=== PATIENT | male | born 1975 | race Caucasian/White ===

== ENCOUNTER 2021-06-12 09:00 | Outpatient (REF) | payer OTHER, SELFPAY ==
[2021-06-12 11:23] LABS: MANUAL DIFF FLAG NO
[2021-06-12 11:32] LABS: Basophils Absolute Auto 0.1 X10*3/uL (0.0-0.2); Basophils Percent Auto 0.9 % (0-2); Eosinophils Absolute Auto 0.2 X10*3/uL (0.0-0.4); Eosinophils Percent Auto 3.8 % (0-4); Hematocrit 45.7 % (42.0-52.0); Hemoglobin 15.5 g/dl (14.0-18.0); Imm Gran Abs Auto 0.01 X10*3/uL (0.00-0.03); Imm Gran Pct Auto 0.2 % (0.0-0.4); Lymphocytes Absolute Auto 1.4 X10*3/uL (1.2-4.9); Lymphocytes Percent Auto 25.8 % (20-40); Mean Corpuscular HGB Conc 33.9 g/dl (31.0-36.0); Mean Corpuscular Hemoglobin 29.1 pg (27.0-33.0); Mean Corpuscular Volume 85.7 fL (80.0-98.0); Mean Platelet Volume 10.1 fL (9.4-12.4); Monocytes Absolute Auto 0.4 X10*3/uL (0.1-1.2); Monocytes Percent Auto 8.1 % (2-11); Neutrophils Absolute Auto 3.2 x10*3/uL (2.0-8.3); Neutrophils Percent Auto 61.2 % (45-73); Platelet Count 173 X10*3/uL (160-400); Red Blood Count 5.33 X10*6/uL (4.60-5.80); Red Cell Distribution Width 13.2 % (11.0-16.0); White Blood Count 5.3 X10*3/uL (4.8-10.8)
[2021-06-12 12:04] LABS: Alanine Aminotransferase 28 U/L (0-40); Albumin Level 4.8 g/dL (3.5-5.0); Alkaline Phosphatase 60 U/L (39-117); Anion Gap 12 (12-20); Aspartate Amino Transferase 25 U/L (5-37); Bilirubin Total 1.1 mg/dL (0.0-1.0); Blood Urea Nitrogen 17 mg/dL (9-16); Calcium 9.5 mg/dL (8.4-10.2); Carbon Dioxide 30 mmol/L (22-29); Chloride 102 mmol/L (96-108); Cholesterol 157 mg/dL; Estimated Glomerular Filt Rate > 60; Glucose Random 89 mg/dL (60-115); HDL Cholesterol 39 mg/dL; LDL Cholesterol Calculated 103 mg/dl; Potassium 4.6 mmol/L (3.3-5.1); Sodium 139 mmol/L (135-145); Total Protein 7.4 g/dL (6.5-8.0); Triglycerides 77 mg/dL
[2021-06-12 12:06] LABS: Free T4 (Free Thyroxine) 0.94 ng/dL (0.71-1.85); Thyroid Stimulating Hormone 1.13 uIU/mL (0.32-4.0)
[2021-06-12 12:16] LABS: Folate 6.9 ng/mL (> or = 4.0); Vitamin B12 211 pg/mL (200-900)
[2021-06-12 12:18] LABS: ~Hepatitis C Antibody Nonreactive (Nonreactive)
[2021-06-12 12:29] LABS: Erythrocyte Sedimentation Rate 1 MM/HR (0-15)
[2021-06-12 12:31] LABS: HBS Num1 0.16 mIU/mL (0-7.99); HBc Num1 0.12 S/CO (0.00-0.79); Hepatitis B Core Antibody Nonreactive (Nonreactive); Hepatitis B Surface Antigen Negative (Negative); ~Hepatitis B Surface Antibody NONREACTIVE (Nonreactive)
== END 2021-06-12 09:01 | disposition home or self-care (01) ==
LOC: HO.HMGCLDS 09:00
PROVIDERS: PCP Internal Medicine; Visit Provider Internal Medicine
DX: E78.00 Pure hypercholesterolemia, unspecified (principal); L40.9 Psoriasis, unspecified; F32.9 Major depressive disorder, single episode, unspecified; F41.9 Anxiety disorder, unspecified; R79.89 Other specified abnormal findings of blood chemistry
CPT/HCPCS: 36415; 80053; 80061; 82607; 82746; 84439; 84443; 85025; 85652; 86704; 86706; 86803; 87340

== ENCOUNTER 2022-05-21 06:57 | Outpatient (REF) | payer BC, SELFPAY ==
[2022-05-21 11:39] LABS: MANUAL DIFF FLAG NO
[2022-05-21 11:51] LABS: Basophils Absolute Auto 0.1 X10*3/uL (0.0-0.2); Basophils Percent Auto 1.3 % (0-2); Eosinophils Absolute Auto 0.2 X10*3/uL (0.0-0.4); Eosinophils Percent Auto 3.7 % (0-4); Hematocrit 45.4 % (42.0-52.0); Hemoglobin 15.2 g/dl (14.0-18.0); Imm Gran Abs Auto 0.01 X10*3/uL (0.00-0.03); Imm Gran Pct Auto 0.2 % (0.0-0.4); Lymphocytes Absolute Auto 1.4 X10*3/uL (1.2-4.9); Lymphocytes Percent Auto 25.1 % (20-40); Mean Corpuscular HGB Conc 33.5 g/dl (31.0-36.0); Mean Corpuscular Volume 86.5 fL (80.0-98.0); Mean Platelet Volume 10.1 fL (9.4-12.4); Monocytes Absolute Auto 0.4 X10*3/uL (0.1-1.2); Monocytes Percent Auto 7.5 % (2-11); Neutrophils Absolute Auto 3.4 x10*3/uL (2.0-8.3); Neutrophils Percent Auto 62.2 % (45-73); Platelet Count 148 X10*3/uL (160-400); Red Blood Count 5.25 X10*6/uL (4.60-5.80); Red Cell Distribution Width 13.1 % (11.0-16.0); White Blood Count 5.5 X10*3/uL (4.8-10.8)
[2022-05-21 12:28] LABS: Alanine Aminotransferase 32 U/L (0-40); Albumin Level 4.6 g/dL (3.5-5.0); Alkaline Phosphatase 69 U/L (39-117); Anion Gap 9 (12-20); Aspartate Amino Transferase 24 U/L (5-37); Bilirubin Total 1.2 mg/dL (0.0-1.0); Blood Urea Nitrogen 14 mg/dL (9-16); Calcium 9.2 mg/dL (8.4-10.2); Carbon Dioxide 30 mmol/L (22-29); Chloride 105 mmol/L (96-108); Cholesterol 157 mg/dL; Estimated Glomerular Filt Rate > 60; Glucose Random 83 mg/dL (60-115); HDL Cholesterol 34 mg/dL; LDL Cholesterol Calculated 108 mg/dl; Potassium 4.3 mmol/L (3.3-5.1); Sodium 140 mmol/L (135-145); Total Protein 6.8 g/dL (6.5-8.0); Triglycerides 77 mg/dL
[2022-05-21 12:40] LABS: Free T4 (Free Thyroxine) 0.99 ng/dL (0.71-1.85); Thyroid Stimulating Hormone 1.61 uIU/mL (0.32-4.0); Vitamin B12 270 pg/mL (200-900)
[2022-05-26 14:13] LABS: Intrinsic Factor Antibodies Negative (Negative)
[2022-05-27 23:14] LABS: Parietal Cell Antibody <=20.0 Unit (<=20.0)
== END 2022-05-21 06:58 | disposition home or self-care (01) ==
LOC: HO.HMGCLDS 06:57
PROVIDERS: PCP Internal Medicine; Visit Provider Internal Medicine
DX: E78.00 Pure hypercholesterolemia, unspecified (principal); F41.1 Generalized anxiety disorder
CPT/HCPCS: 36415; 80053; 80061; 82607; 82746; 83516; 84439; 84443; 85025; 86340; 86900; 86901

== ENCOUNTER 2022-11-20 08:04 | Outpatient (AMB) | payer OTHER, SELFPAY ==
--- NOTE | 2022-11-20 08:31 | MHC.PC.OV ---
Vital Signs 11/20/22 08:33 Height 5 ft 10 in Weight 163 lb BMI 23.4 BP 128/78 Blood Pressure Location Lt brachial Position Sitting Pulse 59 Pulse Source Pulse Oximeter Pulse Oximetry (%) 96 Oxygen Delivery Method Room Air Intake Visit Reasons: ARCADIO Allergies No Known Allergies Allergy (Verified 05/20/22 09:04) Tobacco use date assessed: 05/20/22 Dental Screening Dental Screen Date: 11/20/22 Did you have a dental visit in the last 12 months?: Yes Did you have a dental problem in the last 6 months where you did not have access to dental care?: No Was dental information given to patient?: Patient has dentist HPI ARCADIO HPI Details 47-year-old male coming in today for follow-up. Last seen in April 2022 with generalized anxiety disorder patient is on Lexapro 10 mg once a day. Patient is going to be running on half marathon with daughter. Having problems with partner and asking for sexually transmitted disease testing. Patient has seen Optometry and was told there were spots in the eye few months ago and was told that the spots are 2 now and was reassured but was asking for ophthalmology referral. Patient has a history of psoriasis and was supposed to see the Rheumatology and has been waiting and at the last moment canceled and was asking for referral to a different dermatology. [facility] Medical History (Updated 11/20/22 @ 08:54 by Delaney Jacques MD) Colon cancer screening Vitamin D deficiency Psoriasis Surgical History (Updated 12/28/19 @ 10:35 by Delaney Jacques MD) History of vasectomy Hx of tonsillectomy Family History (Updated 11/20/22 @ 08:38 by Re Vicente [facility]) Maternal Aunt Breast cancer in situ Paternal Aunt Breast cancer in situ Father Prostate cancer Substance abuse Paternal Grandfather Prostate cancer Mother Substance abuse Sister Substance abuse Brother Substance abuse Social History (Updated 05/20/22 @ 09:27 by Delaney Jacques MD) Housing: Apartment Alcohol intake: current Patient Tobacco Use Status: Never used Tobacco e-Cigarette/Vaping Use: Never Used Second Hand Smoke Exposure: No service: No Current occupational status: employed Cognitive needs: No Hearing needs: No Vision needs: No Questionnaire PHQ-9 Over the last 2 weeks, how often have you been bothered by any of the following problems? 1. Little interest or pleasure in doing things: more than half the days 2. Feeling down, depressed, or hopeless: more than half the days 3. Trouble falling or staying asleep, or sleeping too much: not at all 4. Feeling tired or having little energy: not at all 5. Poor appetite or overeating: not at all 6. Feeling bad about yourself - or that you are a failure or have let yourself or your family down: not at all 7. Trouble concentrating on things, such as reading the newspaper or watching television: not at all 8. Moving or speaking so slowly that other people could have noticed. Or the opposite - being so fidgety or restless that you have been moving around a lot more than usual: not at all 9. Thoughts that you would be better off or of hurting yourself in some way: not at all Total score: 4 Depression Screening Interpretation: Negative Source: Developed by Drs. Dakota Saunders, Kori Elliott, Rishi Toledo and colleagues, with an educational melissa from [employer]. Thrive Questionnaire Date Thrive assessed: 05/20/22 ARCADIO-7 AMB Questionnaire ARCADIO-7 Date ARCADIO - 7 assessed: 05/20/22 Source: Developed by Drs. Dakota Saunders, Kori Elliott, Rishi Toledo and colleagues, with an educational melissa from [employer]. Physical exam (Primary Care) Vital Signs: Last Vital Signs Pulse 59 11/20/22 08:33 BP 128/78 11/20/22 08:33 Pulse Ox 96 11/20/22 08:33 Oxygen Delivery Method Room Air 11/20/22 08:33 BMI result Body Mass Index 23.4 Tobacco/Smoking Status: Tobacco use Status Tobacco use date assessed 05/20/22 11/20/22 08:34 Patient Tobacco Use Status Never used Tobacco 11/20/22 08:34 e-Cigarette/Vaping Use Never Used 11/20/22 08:34 PHQ-9: PHQ-9 Score PHQ-9: Total score 4 11/20/22 08:39 Depression Screening Interpretation: Negative Thrive Assessment: Date of Thrive Assessment Date Thrive assessed 05/20/22 11/20/22 08:34 Const General: alert; No acute distress Eyes Conjunctivae: conjunctivae normal Resp Auscultation: clear to auscultation bilaterally Cardio Rate: regular rate Rhythm: regular rhythm GI Inspection: Yes normal to inspection Extrem General: Yes normal to inspection and No edema Assessment and Plan Assessment & Plan (1) Generalized anxiety disorder: Comment: Decline any referral for counseling April 2021 Code(s): F41.1 - Generalized anxiety disorder Plan: Continue with present management (2) Vitamin B12 deficiency: Code(s): E53.8 - Deficiency of other specified B group vitamins Plan: B12 deficiency 1000 mcg once a day and add folic acid (3) Vision problem: Comment: Vohname Code(s): H54.7 - Unspecified visual loss Plan: Referral to Ophthalmology (4) Sexually transmitted disease exposure: Code(s): Z20.2 - Contact with and (suspected) exposure to infections with a predominantly sexual mode of transmission Plan: Testing done (5) Psoriasis: Code(s): L40.9 - Psoriasis, unspecified Plan: referral to Dermatology Orders: Orders HIV Ab/Ag Today Z20.2 - Contact with and (suspected) exposure to infections with a predominantly sexual mode of transmission CT NG by PCR Today Z20.2 - Contact with and (suspected) exposure to infections with a predominantly sexual mode of transmission Syphilis Screen Today Z20.2 - Contact with and (suspected) exposure to infections with a predominantly sexual mode of transmission Hepatitis B,C Profile Today R79.89 - Other specified abnormal findings of blood chemistry, Z20.2 - Contact with and (suspected) exposure to infections with a predominantly sexual mode of transmission Referrals Ophthalmology Referral H54.7 - Unspecified visual loss Dermatology Referral L40.9 - Psoriasis, unspecified Coding Level of Care Code Est Pt Level 4 (40685) Diagnoses Generalized anxiety disorder F41.1 Vitamin B12 deficiency E53.8 Vision problem H54.7 Sexually transmitted disease exposure Z20.2 Psoriasis L40.9
[2022-11-20 08:33] VITALS: BP 128/78; PULSE 59; O2SAT 96; BMI 23.4
== END 2022-11-20 09:03 | disposition home or self-care (01) ==
PROVIDERS: Visit Provider Internal Medicine
DX: F41.1 Generalized anxiety disorder (principal); E53.8 Deficiency of other specified B group vitamins; H54.7 Unspecified visual loss; Z20.2 Contact with and (suspected) exposure to infections with a predominantly sexual mode of transmission; L40.9 Psoriasis, unspecified
CPT/HCPCS: 99214

== ENCOUNTER 2022-11-25 07:43 | Outpatient (REF) | payer OTHER, SELFPAY ==
[2022-11-25 12:56] LABS: Syphilis Screen Nonreactive (Nonreactive)
[2022-11-25 12:58] LABS: HBS Num1 0.27 mIU/mL (0-7.99); HBc Num1 0.09 S/CO (0.00-0.79); HIV AB/AG Nonreactive (Nonreactive); HIV Num 1 0.06 S/CO (0.00-0.99); Hepatitis B Core Antibody Nonreactive (Nonreactive); Hepatitis B Surface Antigen Negative (Negative); ~HepC Num1 0.09 S/CO (0.00-0.79); ~Hepatitis B Surface Antibody NONREACTIVE (Nonreactive); ~Hepatitis C Antibody Nonreactive (Nonreactive)
== END 2022-11-25 07:44 | disposition home or self-care (01) ==
LOC: HO.HMGCLDS 07:43
PROVIDERS: PCP Internal Medicine; Visit Provider Internal Medicine
DX: Z11.4 Encounter for screening for human immunodeficiency virus [HIV] (principal); Z20.2 Contact with and (suspected) exposure to infections with a predominantly sexual mode of transmission; R79.89 Other specified abnormal findings of blood chemistry
CPT/HCPCS: 36415; 86704; 86706; 86780; 86803; 87340; 87389

== ENCOUNTER 2024-11-22 11:06 | Outpatient (AMB) | payer OTHER, SELFPAY ==
[2024-11-22 11:14] VITALS: BP 132/88; PULSE 75; TEMP 36.2; O2SAT 98; BMI 24.4
--- NOTE | 2024-11-22 11:14 | A.OFFPC_ITS ---
Vital Signs 11/22/24 11:14 Height 5 ft 10 in Weight 170 lb 6 oz BMI 24.4 BP 132/88 Blood Pressure Location Lt brachial Position Sitting Pulse 75 Pulse Source Pulse Oximeter Temp 97.1 F Temp Source Temporal Artery Scan Pulse Oximetry (%) 98 Oxygen Delivery Method Room Air Intake Visit Reasons: CPE Allergies No Known Allergies Allergy (Verified 11/22/24 11:18) Medication List - Last Reconciled 11/22/24 by Delaney Jacques MD No Known Home Meds Tobacco use date assessed: 11/22/24 Dental Screening Dental Screen Date: 11/22/24 Did you have a dental visit in the last 12 months?: No Did you have a dental problem in the last 6 months where you did not have access to dental care?: No Was dental information given to patient?: Patient has dentist HPI CPE HPI Details alergic reaction with facial [facility]eling urgent [facility] - dog has a new tick collar with essential oils- went again to urgent care[facility] and was rx steroid PFS Medical History Colon cancer screening Vitamin D deficiency Psoriasis Surgical History History of vasectomy Hx of tonsillectomy Family History Maternal Aunt Breast cancer in situ Paternal Aunt Breast cancer in situ Father Prostate cancer Substance abuse Paternal Grandfather Prostate cancer Mother Substance abuse Sister Substance abuse Brother Substance abuse Social History (Updated 11/22/24 @ 11:50 by Delaney Jacques MD) Housing: Apartment Alcohol intake: current Comment: twice a week 2 drinks a week Patient Tobacco Use Status: Never used Tobacco e-Cigarette/Vaping Use: Never Used Second Hand Smoke Exposure: No service: No Current occupational status: employed Cognitive needs: No Hearing needs: No Vision needs: No Questionnaire PHQ-9 Over the last 2 weeks, how often have you been bothered by any of the following problems? 1. Little interest or pleasure in doing things: not at all 2. Feeling down, depressed, or hopeless: not at all 3. Trouble falling or staying asleep, or sleeping too much: not at all 4. Feeling tired or having little energy: not at all 5. Poor appetite or overeating: not at all 6. Feeling bad about yourself - or that you are a failure or have let yourself or your family down: not at all 7. Trouble concentrating on things, such as reading the newspaper or watching television: not at all 8. Moving or speaking so slowly that other people could have noticed. Or the opposite - being so fidgety or restless that you have been moving around a lot more than usual: not at all 9. Thoughts that you would be better off or of hurting yourself in some way: not at all Total score: 0 Source: Developed by Drs. Dakota Saunders, Kori Elliott, Rishi Toledo and colleagues, with an educational melissa from [employer]. Thrive Questionnaire Date Thrive assessed: 11/15/24 I am a: Patient What is your living situation today?: I have a steady place to live Within the past 12 months, did the food you bought not last and you didn't have the money to get more?: Never true Within the past 12 months, did you worry whether your food would run out before you got money to buy more?: Never true Do you have trouble paying for medicines?: No Do you have trouble getting transportation to medical appointments?: No Do you have trouble paying your heating and electricity bill?: No Do you have trouble taking care of your child, family member or friend?: No Do you have trouble with day-to-day activities such as bathing, preparing meals, shopping, managing finances, etc.?: No Are you currently unemployed and looking for a job?: No Are you interested in more education?: No Please select the resources that you would like help with: None Currently or been in a relationship where the following occur: I choose not to answer THRIVE Score: 0 AUDIT C Alcohol Use Questionnaire (AUDIT-C) 1. How often do you have a drink containing alcohol?: 2-4 times a month 2. How many drinks containing alcohol do you have on a typical day when you are drinking?: 3 or 4 3. How often do you have six or more drinks on one occasion?: Never Total Score: 3 ARCADIO-7 AMB Questionnaire ARCADIO-7 Date ARCADIO - 7 assessed: 11/22/24 Feeling nervous, anxious, or on edge: 1 = Several days Not being able to stop or control worryin = Several days Worrying too much about different things: 1 = Several days Trouble relaxin = Not at all Being so restless that it is hard to sit still: 0 = Not at all Becoming easily annoyed or irritable: 0 = Not at all Feeling afraid as if something awful might happen: 0 = Not at all Total ARCADIO-7 score (0-4 normal; 5-9 mild; 10-14 moderate; 15-21 severe): 3 Source: Developed by Drs. Dakota Saunders, Kori Elliott, Rishi Toledo and colleagues, with an educational melissa from [employer]. Review of Systems Const Denies poor appetite and Denies weakness Eyes Denies no additional complaints ENT Reports Normal hearing present, Denies dizziness, Denies nasal congestion, Denies tinnitus and Denies sore throat Card Denies chest pain, Denies syncope, Denies rapid heart rate and Denies dyspnea Resp Denies cough and Denies dyspnea GI Denies change in stool character, Reports constipation, Denies diarrhea, Denies nausea and Denies vomiting Denies dysuria and Denies urinary frequency Neuro Reports Normal hearing present, Denies confusion, Denies dizziness, Denies syncope and Denies weakness Psych Denies confusion Physical exam (Primary Care) Vital Signs: Last Vital Signs Temp 97.1 F 11/22/24 11:14 Pulse 75 11/22/24 11:14 BP 132/88 11/22/24 11:14 Pulse Ox 98 11/22/24 11:14 Oxygen Delivery Method Room Air 11/22/24 11:14 BMI result Body Mass Index 24.4 Tobacco/Smoking Status: Tobacco use Status Tobacco use date assessed 11/22/24 11/22/24 11:19 Patient Tobacco Use Status Never used Tobacco 11/22/24 11:19 e-Cigarette/Vaping Use Never Used 11/22/24 11:19 PHQ-9: PHQ-9 Score PHQ-9: Total score 0 11/22/24 11:19 Thrive Assessment: Date of Thrive Assessment Date Thrive assessed 11/15/24 11/22/24 11:19 Currently or been in a relationship where the following occur: I choose not to answer Const General: No confusion Orientation/consciousness: No confusion HENMT Head: Yes normocephalic Ears: external ears normal and TM's normal bilaterally Face and sinus: Yes normal facial exam Mouth: moist mucous membranes Throat: Yes tonsils normal Eyes Conjunctivae: conjunctivae normal Pupils: Equal, round and reactive pupils present and Pupil accommodation reflex normal Direct Ophthalmoscopy: normal light reflex Neck Neck: No lymphadenopathy Thyroid: Thyroid normal Chest Chest palpation & inspection: normal inspection of the chest Resp Effort & Inspection: normal respiratory effort and no audible wheezes Auscultation: clear to auscultation bilaterally, no crackles, no wheezes and lung sounds not diminished Cardio Rate: regular rate Rhythm: regular rhythm Peripheral pulses: radial pulses present and dorsalis pedis present GI Other: visual rectal exam negative Palpation (GI): no masses Auscultation: normal bowel sounds and normoactive bowel sounds Rectal Exam - Male: Yes deferred Male General Exam: Yes normal external exam Skin General skin exam: no rashes or lesions noted Rashes: no rashes Neuro General: No confusion Cranial nerves: Yes Equal, round and reactive pupils present and Yes Normal hearing present Cognition (Neuro): normal cognition Gait exam (Neuro): Normal gait present Motor exam (neuro): 5/5 motor strength present throughout Deep tendon reflexes (DTR's): Right brachioradialis reflex intensity grade: 2+, Left brachioradialis reflex intensity grade: 2+, Right patellar reflex intensity grade: 2+ and Left patellar reflex intensity grade: 2+ Extrem General: No edema Coding Level of Care Code Est Pt Prev Care 40-64y(50426) Diagnoses Annual physical exam Z00. Vitamin B12 deficiency E53.8 Generalized anxiety disorder F41.1 Psoriasis L40.9 Allergic reaction T78.40XA Left hamstring muscle strain S76.312A Assessment & Plan Assessment & Plan (1) Annual physical exam: Code(s): Z00.00 - Encounter for general adult medical examination without abnormal findings Category: Medical Plan: Patient is advised to eat healthy, keep well hydrated, keep active and have adequate sleep. (2) Vitamin B12 deficiency: Code(s): E53.8 - Deficiency of other specified B group vitamins Category: Medical Plan: Discussed about repeating the blood work to check for vitamin B12 (3) Generalized anxiety disorder: Comment: Decline any referral for counseling April 2021 Code(s): F41.1 - Generalized anxiety disorder Category: Medical Plan: Stable (4) Psoriasis: Code(s): L40.9 - Psoriasis, unspecified Category: Medical Plan: Follow-up with dermatology (5) Allergic reaction: Code(s): T78.40XA - Allergy, unspecified, initial encounter Category: Medical (6) Left hamstring muscle strain: Code(s): S76.312A - Strain of muscle, fascia and tendon of the posterior muscle group at thigh level, left thigh, initial encounter Category: Medical Plan History of Present Illness The patient is a 49-year-old male presenting for a physical examination and wellness visit. The patient has a history of psoriasis and generalized anxiety disorder. He noted a 7-pound weight gain since his last visit. In May 2022, the patient underwent a Cologuard test, which returned negative, and he remains up to date with this screening. The patient's last blood work in 2022 showed normal blood count with mild thrombocytopenia, normal electrolytes, renal function at 1.04, normal blood sugar, liver function, and cholesterol. However, there was a mild vitamin B12 deficiency noted, while folic acid and thyroid function were normal. Health Maintenance - Colon cancer screening with stool test (Cologuard) in May 2022, negative result - Discussion about repeating blood work to check vitamin B12 levels Social History Review of Systems Physical Exam General: Cooperative, healthy appearing, comfortable, no acute distress and well developed Orientation: Patient oriented x3 Limitations: No limitations Head: Normal to inspection Ears: Hearing grossly normal bilaterally Nose: Normal external nose present Face and sinus: Normal facial exam Eyes: Appearance normal, both eyes and all related structures Neck: Normal visual inspection and Yes full ROM Respiratory: Normal respiratory effort and able to speak in complete sentences. Clear to auscultation bilaterally Cardiovascular: Regular rate and rhythm. Normal S1 and S2 GI: Normal to inspection. Soft to palpation and nontender Skin: No rashes or lesions noted Neuro: Patient oriented x3 Extremities: Normal to inspection Results - Labs: Normal blood count with mild thrombocytopenia, normal electrolytes, renal function at 1.04, normal blood sugar, liver function, cholesterol, mild vitamin B12 deficiency, normal folic acid, and thyroid function - Tests: Colon cancer screening with stool test (Cologuard) in May 2022, negative result Plan Patient was informed and verbally consented to the use of an ambient scribe for clinic note documentation during this visit. 1. Psoriasis The patient is advised to follow up with dermatology for ongoing management of psoriasis. 2. Generalized Anxiety Disorder The patient's generalized anxiety disorder is stable, and no changes in management were discussed during this visit. 3. Mild Thrombocytopenia The mild thrombocytopenia noted in the last blood work will be monitored, and repeat blood work is planned to reassess the condition. 4. Vitamin B12 Deficiency The patient is advised to repeat blood work to monitor vitamin B12 levels and address the deficiency if necessary. Discussion Notes Patient Instructions - Follow up with dermatology for psoriasis management. - Repeat blood work to monitor vitamin B12 levels and thrombocytopenia. Orders: Orders Erythrocyte Sedimentation Rate Today L40.9 - Psoriasis, unspecified Complete Blood Count Auto Diff Today L40.9 - Psoriasis, unspecified Comprehensive Met. Panel Today L40.9 - Psoriasis, unspecified Prostate Specific Antigen Scr Today L40.9 - Psoriasis, unspecified Magnesium Today L40.9 - Psoriasis, unspecified UA CC w/rflx Micro + Cult Today L40.9 - Psoriasis, unspecified, R30.0 - Dysuria Lipid Panel Today E78.00 - Pure hypercholesterolemia, unspecified, L40.9 - Psoriasis, unspecified PT Evaluation and Treatment Today S76.312A - Strain of muscle, fascia and tendon of the posterior muscle group at thigh level, left thigh, initial encounter Thyroid Stimulating Hormone Today L40.9 - Psoriasis, unspecified Free T4 (Free Thyroxine) Today L40.9 - Psoriasis, unspecified Vitamin B12 and Folate Today L40.9 - Psoriasis, unspecified Referrals Dermatology Referral L40.9 - Psoriasis, unspecified Allergy & Immunology Referral T78.40XA - Allergy, unspecified, initial encounter Medications: Refilled hydrocortisone valerate 0.2% 1 appl topical BID PRN 45 grams 0RF skin irritation 14 days L40.9 - Psoriasis, unspecified
== END 2024-11-22 12:09 | disposition home or self-care (01) ==
LOC: HO.HMCH 11:07
PROVIDERS: PCP Internal Medicine; Visit Provider Internal Medicine
DX: Z00.00 Encounter for general adult medical examination without abnormal findings (principal); E53.8 Deficiency of other specified B group vitamins; F41.1 Generalized anxiety disorder; L40.9 Psoriasis, unspecified; T78.40XA Allergy, unspecified, initial encounter; S76.312A Strain of muscle, fascia and tendon of the posterior muscle group at thigh level, left thigh, initial encounter

== ENCOUNTER 2024-12-07 07:03 | Outpatient (REF) | payer OTHER, SELFPAY ==
[2024-12-07 09:59] LABS: MANUAL DIFF FLAG NO
[2024-12-07 10:19] LABS: Hematocrit 43.7 % (42.0-52.0); Hemoglobin 14.9 g/dl (14.0-18.0); Imm Gran Abs Auto 0.02 X10*3/uL (0.00-0.03); Imm Gran Pct Auto 0.4 % (0.0-0.4); Lymphocytes Absolute Auto 1.5 X10*3/uL (1.2-4.9); Mean Corpuscular HGB Conc 34.1 g/dl (31.0-36.0); Mean Corpuscular Hemoglobin 29.6 pg (27.0-33.0); Mean Corpuscular Volume 86.9 fL (80.0-98.0); NRBC Abs Auto 0.000 X10*3/uL (0.0-0.012); NRBC Pct Auto 0.0 /100WBC (0.0-0.2); Platelet Count 153 X10*3/uL (160-400); Red Blood Count 5.03 X10*6/uL (4.60-5.80); White Blood Count 5.6 X10*3/uL (4.8-10.8)
[2024-12-07 10:22] LABS: Appearance Urine Clear; Glucose Urine UA Negative (Negative); PH 6.5 (5.0-9.0); Specific Gravity - Urine 1.015 (1.005-1.025)
[2024-12-07 10:44] LABS: Alanine Aminotransferase 34 U/L (0-40); Albumin Level 4.8 g/dL (3.5-5.0); Alkaline Phosphatase 62 U/L (39-117); Anion Gap 11 (12-20); Aspartate Amino Transferase 30 U/L (5-37); Blood Urea Nitrogen 16 mg/dL (9-16); Calcium 9.3 mg/dL (8.4-10.2); Carbon Dioxide 31 mmol/L (22-29); Chloride 104 mmol/L (96-108); Cholesterol 177 mg/dL (<200); Estimated Glomerular Filt Rate > 60; HDL Cholesterol 37 mg/dL (>40); Magnesium 2.3 mg/dL (1.6-2.6); Potassium 4.6 mmol/L (3.3-5.1); Sodium 141 mmol/L (135-145); Total Protein 7.2 g/dL (6.5-8.0); Triglycerides 122 mg/dL (<150)
[2024-12-07 11:07] LABS: Free T4 (Free Thyroxine) 1.01 ng/dL (0.71-1.85); Thyroid Stimulating Hormone 1.70 uIU/mL (0.32-4.0)
[2024-12-07 11:08] LABS: Folate 8.6 ng/mL (> or = 4.0); Vitamin B12 240 pg/mL (200-900)
== END 2024-12-07 07:04 | disposition home or self-care (01) ==
LOC: HO.HMGCLDS 07:03
PROVIDERS: PCP Internal Medicine; Visit Provider Internal Medicine
DX: Z12.5 Encounter for screening for malignant neoplasm of prostate (principal); R30.0 Dysuria; L40.9 Psoriasis, unspecified; E78.00 Pure hypercholesterolemia, unspecified
CPT/HCPCS: 36415; 80053; 80061; 81003; 82607; 82746; 83735; 84153; 84439; 84443; 85025; 85652